=== PATIENT | female | born 1980 | race African-American/Black ===

== ENCOUNTER 2017-01-26 08:07 | Emergency (ER) ==
[2017-01-26 08:19] VITALS: BP 166/105
--- NOTE | 2017-01-26 09:02 | Diag Imaging Result Document ---
PROCEDURE NAME: KNEE 3 VIEWS LEFT - 01/26/2017 LEFT KNEE, THREE VIEWS: FINDINGS: No fracture. No dislocation. No other bony abnormality. IMPRESSION: Negative exam.
[2017-01-26] MEDS ORDERED: NORCO-10 PO ONE (09:14)
[2017-01-26] MEDS ORDERED: SOLU-MEDROL IM ONE (09:14)
--- NOTE | 2017-01-26 09:20 | PROVIDER DOCUMENTATION ---
HPI-Musculoskeletal Pain/Inj - GENERAL Chief Complaint: Extremity Pain Stated Complaint: EXTREMITY PAIN Time Seen by Provider: 01/26/17 08:15 Source: patient - HX OF PRESENT ILLNESS-MUSKULOSKELTAL Nature of Presenting Problem: patient is a 36 y/o F that presents to the ER with multiple joint pain for years that got worse 5 days ago. patient saw pcp yesterday given meds with no relief. pt is set up with Rheumologist and awaiting appointment. denies injury, fever/chills, or swelling. Quality of Pain: reports: dull Severity in ED: mild Onset/Duration: gradual, 5 days ago Timing: still present, constant Modifying Factors: worse with: movement Any recent injury?: No Locality of Occurance: Home Similar Symptoms Previously?: Yes Recently seen or treated by another doctor?: Yes - HIP/PELVIS PAIN/INJURY Hip Pain Location: reports: hip (R), hip (L), pelvis Pain Radiation: reports: no radiation Context / Method of Injury: reports: unknown Associated Symptoms: reports: denies symptoms - LOWER EXTREMITY PAIN/INJURY Lower Extremities Pain: knee: bilateral, ankle: bilateral Context / Method of Injury: reports: unknown Associated Symptoms: reports: denies symptoms - UPPER EXTREMITY PAIN/INJURY Extremities Pain Location: shoulder: bilateral, elbow: bilateral, wrist: bilateral Context / Method of Injury: reports: unknown Associated Symptoms: reports: denies symptoms Review of Systems - Adult - REVIEW OF SYSTEMS - ADULT Constitutional: denies: chills, fever Eyes: reports: no symptoms reported Ears, Nose, Mouth & Throat: reports: no symptoms reported Cardiovascular: denies: edema, orthopnea, palpitations Respiratory: denies: cough, shortness of breath, wheezing Gastrointestinal: denies: abdominal pain, diarrhea, nausea Genitourinary: reports: no symptoms reported Musculoskeletal: reports: joint pain. denies: joint swelling Integumentary: reports: no symptoms reported Neurological: reports: no symptoms reported Psychiatric: reports: no symptoms reported Endocrine: reports: no symptoms reported Hematologic/Lymphatic: reports: no symptoms reported Allergic/Immunologic: reports: no symptoms reported All Other Systems: Reviewed and Negative Past History - Adult - PAST MEDICAL HISTORY-ADULT Review of Records: reports: Old Records Reviewed, Nursing Assessment Review, Medications Reviewed Cardiovascular: reports: HTN Musculoskeletal: reports: arthritis - PRIOR SURGERIES/PROCEDURES Surgical/Procedure History: reports: BTL, other (D&C) - PRIOR HOSPITALIZATIONS Prior Hospitalizations: reports: for other non-related - IMMUNIZATION STATUS Childhood Immunizations: See Nurse Assessment Flu Vaccine: See Nurse Assessment - FAMILY HISTORY Family History: reviewed, not pertinent - SOCIAL HISTORY Smoking: cigarettes, less than 1 pack/day Alcohol Use Frequency: occasionally Living Situation: family Physical Exam-Injury Related - Physical Exam-Injury Related Initial Vital Signs Reviewed: Yes General Appearance: alert, anxious Eyes: PERRL/EOMI, pink conjunctivae Head, Ears, Nose, Mouth & Throat: normocephalic/atraumatic, moist mucous membranes, normal ENT inspection Neck: non-tender, full range of motion, normal inspection Respiratory: lungs clear, normal breath sounds, no respiratory distress, no accessory muscle use Cardiovascular: regular rate, rhythm, no edema, no murmur Abdominal Exam: normal bowel sounds, non tender, soft, no organomegaly, no pulsatile mass Back Exam: no CVA tenderness, no vertebral tenderness Extremity: normal range of motion, no calf tenderness, normal capillary refill, pelvis stable. negative: calf tenderness, joint effusion Integumentary: normal color, warm/dry Neurologic: grossly normal, no motor/sensory deficits Psych/Mental Status: normal mood/affect, normal thought content, normal thought process, oriented x 3 - Glascow Coma Score Best Eye Response (Lavon): (4) open spontaneously Best Verbal Response (Lavon): (5) oriented Best Motor Response ([place]): (6) obeys commands Lavon Total: 15 Progress - PLAN OF CARE/RESULTS Progress/Plan/Lab Results: Vital Signs Temp Pulse Resp BP Pulse Ox 01/26/17 08:14 98.8 F 87 16 166/105 100 latex Allergy (Verified 01/26/17 08:19) RASH Amoxicillin/Potassium Clav [Augmentin 500-125 Tablet] 500 mg PO BID 01/26/17 Indomethacin 50 mg PO BID 01/26/17 Orders Category Date Time Status KNEE 3 VIEWS LEFT [RAD] Stat Exams 01/26/17 08:27 Draft Hydrocodone/APAP 10 mg/325 mg [Walton-10] Med 01/26/17 09:14 Discontinued 1 each PO NOW ONE Methylprednisolone Sod Succ [Solu-Medrol] Med 01/26/17 09:14 Discontinued 125 mg IM NOW ONE pt will be d/c home with rx, f/u with pcp, pt was clinically stable, understood instructions and results Departure - Departure Time of Disposition Order: 09:16 DIAGNOSIS: Pain, joint, multiple sites Disposition: HOME 01 Certified Medical Emergency: Emergent Condition: Stable Additional Instructions: ED Follow Up Instructions: You have been treated by a care provider in the Emergency Department. These instructions are being provided to you so you can have an understanding of how to care for yourself upon discharge. Upon discharge from the Emergency Department, you are responsible for making arrangements for follow-up care by a physician of your choice. Take all prescribed medications as directed. Return to the Emergency Department immediately for any new or worsening symptoms. You may call the Physician Referral phone number at [phone] to obtain a list of Physicians who are taking new patients. Referrals: Florentino Beal [Primary Care Provider] - Call for Appoint. 1-2days Instructions: Joint Pain Attestation - Scribe Verification/Attestation Scribe:: Marshall Cook Acting as Scribe for:: Bree Mohan Scribe documention review:: This chart was documented by a scribe and accurately reflects the service the provider performed and the decisions made by the provider. Physician Attestation - Physician Attestation I, the provider, attest to the following statement:: Bree Mohan Physician documentation Attestation:: This documentation recorded by the scribe accurately reflects the service I personally performed and the decisions made by me.
== END 2017-01-26 10:20 | disposition home or self-care (01) ==
LOC: P.ED 08:07
DX: M25.551 Pain in right hip (principal); M25.552 Pain in left hip; I10 Essential (primary) hypertension; M19.90 Unspecified osteoarthritis, unspecified site; F17.210 Nicotine dependence, cigarettes, uncomplicated
CPT/HCPCS: 96372; J2930